=== PATIENT | female | born 1995 | race Caucasian/White ===

== ENCOUNTER 2017-08-22 17:56 | Emergency (ER) | payer BC ==
[2017-08-22 18:38] VITALS: BP 122/75
--- NOTE | 2017-08-22 18:50 | UC ---
UC General HPI - HPI Summary HPI Summary: 22 yo female c/o progressive sinus pressure, h/a, congestion. Mild cough. No fever / chills. No GI upset. No rash. Mild h/a. - History of Current Complaint Chief Complaint: UCGeneralIllness Stated Complaint: BILATERAL EAR PAIN/SORE THROAT/NASAL CONGESTION Time Seen by Provider: 08/22/17 18:48 Hx Obtained From: Patient Hx Last Menstrual Period: 07/31/17 Pain Intensity: 4 - Allergy/Home Medications Allergies/Adverse Reactions: Allergies Allergy/AdvReac Type Severity Reaction Status Date / Time No Known Allergies Allergy Verified 08/22/17 18:35 PMH/Surg Hx/FS Hx/Imm Hx Previously Healthy: Yes - Surgical History Surgical History: None - Family History Known Family History: Positive: None - Social History Occupation: Employed Full-time Alcohol Use: Occasionally Substance Use Type: None Smoking Status (MU): Never Smoked Tobacco - Immunization History Most Recent Tetanus Shot: UTD Vaccination Up to Date: Yes Review of Systems Constitutional: Negative Skin: Negative Eyes: Negative ENT: Sinus Congestion, Other - see hpi Respiratory: Negative Cardiovascular: Negative Gastrointestinal: Negative Genitourinary: Negative Motor: Negative Neurovascular: Negative Musculoskeletal: Negative Neurological: Negative Psychological: Negative Is Patient Immunocompromised?: No All Other Systems Reviewed And Are Negative: Yes Physical Exam Triage Information Reviewed: Yes Appearance: Well-Appearing, Well-Nourished Vital Signs: Initial Vital Signs Temp 98.8 F 08/22/17 18:33 Pulse 94 08/22/17 18:33 Resp 16 08/22/17 18:33 BP 122/75 08/22/17 18:33 Pulse Ox 100 08/22/17 18:33 Vital Signs Reviewed: Yes Eye Exam: Normal ENT: Positive: Pharyngeal erythema - mild redness, uvula midline., Nasal congestion, Nasal drainage, TM dull - Bilat TM flores, rtx'd Neck exam: Normal Neck: Positive: Supple, Nontender Respiratory Exam: Normal Respiratory: Positive: Chest non-tender, Lungs clear, Normal breath sounds, No respiratory distress, No accessory muscle use Cardiovascular Exam: Normal Cardiovascular: Positive: RRR, No Murmur, Pulses Normal, Brisk Capillary Refill Abdominal Exam: Normal Abdomen Description: Positive: Nontender Musculoskeletal Exam: Normal Musculoskeletal: Positive: Strength Intact Neurological Exam: Normal - grossly nonfocal Psychological Exam: Normal Skin Exam: Normal Course/Dx - Course Course Of Treatment: Reviewed with pt and mom coa and tx plan. [. Questions as posed answered to the best of my ability. - Differential Dx - Multi-Symptom Provider Diagnoses: Sinusitis. serous otitis Discharge - Sign-Out/Discharge Documenting (check all that apply): Patient Departure - Discharge Plan Condition: Stable Disposition: HOME Prescriptions: Azithromyxin SHEMAR (NF) [Z-Shemar (Zithromax) 250 mg tabs #6] 2 tab PO .TODAY, THEN 1 DAILY #6 tab Patient Education Materials: Antihistamine/Decongestant (By mouth), Sinusitis ( ED), Serous Otitis Media (ED) Referrals: Oneida Vides MD [Primary Care Provider] - Additional Instructions: Follow up with your primary care physician, per routine. Seek medical attention for worse or new problems. - Billing Disposition and Condition Condition: STABLE Disposition: Home
== END 2017-08-22 19:22 | disposition home or self-care (01) ==
LOC: UCCORT 17:56
DX: J32.9 Chronic sinusitis, unspecified (principal); H65.93 Unspecified nonsuppurative otitis media, bilateral
CPT/HCPCS: 99202; G0463

== ENCOUNTER 2017-10-24 17:53 | Emergency (ER) | payer BC ==
[2017-10-24 18:00] VITALS: BP 142/88
--- NOTE | 2017-10-24 19:10 | UC ---
Cardiac HPI - HPI Summary HPI Summary: 22 year old woman comes in with a complaint of chest pain. She has had intermittent chest pain on and off for months. Today the pain has been intermittent but has been lasting all day. It's in the mid chest it's moderate to severe when it happens. It radiates to her back. She is not nauseous or sweaty when it happens. No shortness of breath. She does get anxious when the pain occurs and then her heart starts racing. She feels like when she is anxious heart races and then she feels lightheaded. She does not feel the heart is racing and then causing chest pain. No fevers or chills. She is not a smoker she's on a control pills. No family history or personal history of embolism. Denies any abdominal pain. - History of Current Complaint Chief Complaint: UCChestPain Stated Complaint: PAIN IN CHEST Time Seen by Provider: 10/24/17 17:57 Hx Last Menstrual Period: 10/24/17 Pain Intensity: 2 - Allergy/Home Medications Allergies/Adverse Reactions: Allergies Allergy/AdvReac Type Severity Reaction Status Date / Time No Known Allergies Allergy Verified 10/24/17 18:00 Home Medications: Home Medications NK [No Home Medications Reported] 10/24/17 [History Confirmed 10/24/17] PMH/Surg Hx/FS Hx/Imm Hx Previously Healthy: Yes - Surgical History Surgical History: None - Family History Known Family History: Positive: Cardiac Disease Negative: Diabetes - Social History Alcohol Use: Rare Substance Use Type: None Smoking Status (MU): Never Smoked Tobacco - Immunization History Most Recent Tetanus Shot: UTD Vaccination Up to Date: Yes Review of Systems Constitutional: Negative Skin: Negative Eyes: Negative ENT: Negative Respiratory: Negative Cardiovascular: Chest Pain Gastrointestinal: Negative Genitourinary: Negative Motor: Negative Neurovascular: Negative Musculoskeletal: Negative Neurological: Negative Psychological: Negative Is Patient Immunocompromised?: No All Other Systems Reviewed And Are Negative: Yes Physical Exam Triage Information Reviewed: Yes Appearance: Well-Appearing, No Pain Distress, Well-Nourished Vital Signs: Initial Vital Signs Temp 98.5 F 10/24/17 17:55 Pulse 92 10/24/17 17:55 Resp 17 10/24/17 17:55 BP 142/88 10/24/17 17:55 Pulse Ox 100 10/24/17 17:55 Vital Signs Reviewed: Yes ENT Exam: Normal Neck: Positive: Supple Respiratory: Positive: Chest non-tender, Lungs clear, Normal breath sounds, No respiratory distress Cardiovascular: Positive: RRR Abdomen Description: Positive: Nontender, No Organomegaly, Soft Bowel Sounds: Positive: Present Musculoskeletal Exam: Normal Musculoskeletal: Positive: Strength Intact Neurological Exam: Normal Psychological Exam: Normal Skin Exam: Normal Diagnostics - EKG EKG Comments: AT 18;01 Cardiac Rate: NL - 85BPM Cardiac Rhythm: Sinus: Normal Ectopy: None ST Segment: Normal - Assessment/Plan Course Of Treatment: The chest pain is intermittent. The patient does not have chest pain at this time in the clinic. The chest pain is not preceded by a racing heart. The patient does not feel like passing out during the chest pain. We discussed the possible causes of chest pain. At this time the patient preferred to have an EKG and chest x-ray and no further workup. We discussed going to the emergency department if her symptoms returned or got any worse. - Clinical Impression Provider Diagnoses: CHEST PAIN Discharge - Sign-Out/Discharge Documenting (check all that apply): Patient Departure All imaging exams completed and their final reports reviewed: No - Discharge Plan Condition: Stable Disposition: HOME Patient Education Materials: Chest Pain (ED) Referrals: Oneida Vides MD [Primary Care Provider] - Additional Instructions: FOLLOW UP WITH YOUR DOCTOR. GO TO THE EMERGENCY DEPARTMENT FOR ANY WORSENING OF YOUR CONDITION; PAIN, SHORTNESS OF BREATH, FEVER, RACING HEART, YOU FEEL LIKE PASSING OUT OR QUESTIONS OR CONCERNS. - Billing Disposition and Condition Condition: STABLE Disposition: Home - Attestation Statements Document Initiated by Scribe: Katrin
--- NOTE | 2017-10-25 07:36 | RAD ---
HISTORY: INTERMITTENT CHEST PAIN COMPARISONS: None VIEWS: 4: Frontal dual-energy and lateral views of the chest. FINDINGS: CARDIOMEDIASTINAL SILHOUETTE: The cardiomediastinal silhouette is normal. TYREL: The tyrel are normal. PLEURA: The costophrenic angles are sharp. No pleural abnormalities are noted. LUNG PARENCHYMA: The lungs are clear. ABDOMEN: The upper abdomen is clear. There is no subphrenic gas. BONES AND SOFT TISSUES: No bone or soft tissue abnormalities are noted. OTHER: None. IMPRESSION: NO ACTIVE CARDIOPULMONARY DISEASE. R0
--- NOTE | 2017-10-25 14:29 | UC ---
- Progress Note Progress Note: no change, neg xray Discharge - Sign-Out/Discharge Documenting (check all that apply): Patient Departure All imaging exams completed and their final reports reviewed: Yes - Discharge Plan Condition: Stable Disposition: HOME Patient Education Materials: Chest Pain (ED) Referrals: Oneida Vides MD [Primary Care Provider] - Additional Instructions: FOLLOW UP WITH YOUR DOCTOR. GO TO THE EMERGENCY DEPARTMENT FOR ANY WORSENING OF YOUR CONDITION; PAIN, SHORTNESS OF BREATH, FEVER, RACING HEART, YOU FEEL LIKE PASSING OUT OR QUESTIONS OR CONCERNS. - Billing Disposition and Condition Condition: STABLE Disposition: Home
== END 2017-10-24 20:03 | disposition home or self-care (01) ==
LOC: UCCORT 17:53
DX: R07.9 Chest pain, unspecified (principal)
CPT/HCPCS: 71046; 93005; 99211; G0463